=== PATIENT | male | born 2000 | race Caucasian/White ===

== ENCOUNTER 2024-09-04 08:43 | Outpatient (CLI) | payer BC ==
[2024-09-05 11:10] LABS: TESTOSTERONE, SERUM 436 ng/dL (264-916)
== END 2024-09-04 23:59 | disposition home or self-care (01) ==
LOC: LAB 08:43
PROVIDERS: ATTEND Internal Medicine
DX: E29.1 Testicular hypofunction (principal)
CPT/HCPCS: 36415; 84402; 84403